=== PATIENT | male | born 1965 | race Caucasian/White ===

== ENCOUNTER 2024-04-02 17:15 | Inpatient (IN) | payer OTHER ==
[2024-04-02 17:57] VITALS: BMI 20.7
[2024-04-02] MEDS ORDERED: MAGNESIUM HYDROX 2400MG/30ML ORAL SUSPENSION 30 ML CUP PO PRN (18:54)
[2024-04-02] MEDS ORDERED: POLYETHYLENE GLYCOL (HEALTHYLAX) 3350 17 GM PACKET PO PRN (18:54)
[2024-04-02] MEDS ORDERED: BENZONATATE 200 MG CAPSULE PO PRN (18:54)
[2024-04-02] MEDS ORDERED: NALOXONE HCL 0.4 MG/ML VIAL IM PRN (18:54)
[2024-04-02] MEDS ORDERED: DOCUSATE SODIUM 100 MG CAPSULE (FP) PO PRN (18:54)
[2024-04-02] MEDS ORDERED: NICOTINE POLACRILEX 2 MG LOZENGE BC PRN (18:54)
[2024-04-02] MEDS ORDERED: NALOXONE (NARCAN) HCL 4 MG/0.1 ML SPRAY NS PRN (18:54)
[2024-04-02] MEDS ORDERED: hydrOXYzine PAMOATE 25 MG CAPSULE (FP) PO PRN (18:54)
[2024-04-02] MEDS ORDERED: guaiFENesin 600 MG TABLET.ER (FP) PO PRN (18:54)
[2024-04-02] MEDS ORDERED: IBUPROFEN 400 MG TABLET (FP) PO PRN (18:54)
[2024-04-02] MEDS ORDERED: MAG HYDROX/AL HYDROX/SIMETH 30 ML UNIT-DOSE CUP ONE (19:13)
[2024-04-02] MEDS: MAG HYDROX/AL HYDROX/SIMETH 30 ML UNIT-DOSE CUP PO PRN (19:19)
[2024-04-02] MEDS: PANTOPRAZOLE 20 MG TABLET PO SCH (20:18)
[2024-04-02] MEDS ORDERED: TUBERCULIN PPD 5 TU/0.1ML VIAL ID ONE (21:19)
[2024-04-02] MEDS: THIAMINE 100 MG TABLET PO SCH (21:19)
[2024-04-02] MEDS: MELATONIN 5 MG TABLETS PO SCH (21:19)
[2024-04-02] MEDS: TUBERCULIN PPD 5 TU/0.1ML SYRINGE (IN PATIENT USE ONLY) ID ONE (22:03)
[2024-04-03] MEDS ORDERED: methaDONE HCL 10 MG TABLET PO SCH (07:19)
[2024-04-03] MEDS: PRENATAL VITAMINS W/ FOLIC ACID TABLET (FP) PO SCH (10:32)
[2024-04-03] MEDS ORDERED: ESCITALOPRAM OXALATE 10 MG TABLET ONE (11:04)
[2024-04-03] MEDS: ESCITALOPRAM OXALATE 20 MG TABLET PO SCH (11:08)
[2024-04-03 12:15] LABS: HEMATOCRIT 37.5 % (35.4-49); MCH 28.4 pg (25.7-33.7); MCHC 32.1 g/dl (32.0-35.9); MEAN CELL VOLUME 88.6 fl (80-96); MEAN PLT VOLUME 8.6 fl (7.5-11.1); PLATELET COUNT 141 10^3/uL (134-434); RBC 4.23 M/mm3 (4.00-5.60); RDW 13.6 % (11.9-15.9); WHITE BLOOD COUNT 6.3 K/mm3 (4.0-10.0)
[2024-04-03 12:19] LABS: CHLORIDE 109 mmol/L (98-107); SODIUM 141 mmol/L (136-145)
[2024-04-03 12:21] LABS: CALCIUM 8.8 mg/dL (8.5-10.1)
[2024-04-03 12:22] LABS: ALBUMIN 3.3 g/dl (3.4-5.0); ANION GAP 4 mmol/L (4-13); BLOOD UREA NITROGEN 16.7 mg/dL (7-18); CO2 28 mmol/L (21-32); GLUCOSE,RANDOM 106 mg/dL (74-106)
[2024-04-03 12:25] LABS: CREATININE 1.2 mg/dL (0.55-1.3); SGOT/AST 21 U/L (15-37); SGPT/ALT 23 U/L (13-61)
[2024-04-03 12:27] LABS: BILIRUBIN,TOTAL 0.3 mg/dL (0.2-1); TOT PROT 6.5 g/dl (6.4-8.2)
[2024-04-03 12:28] LABS: ALK PHOS 89 U/L (45-117)
[2024-04-03] MEDS: clonazePAM 1 MG ODT TABLETS SL SCH (14:22)
[2024-04-03 19:42] LABS: SYPHILIS W/ RPR CONF REACTIVE (NONREACTIVE)
[2024-04-03] MEDS: MIRTAZAPINE 30 MG TABLET PO SCH (21:20)
[2024-04-03] MEDS: OLANZapine 10 MG TABLET PO SCH (21:20)
[2024-04-04] MEDS ORDERED: ESCITALOPRAM OXALATE 10 MG TABLET ONE (09:08)
[2024-04-04 11:33] LABS: PH,URINE 7.5 (5.0-8.0); URINE APPEARANCE CLEAR; URINE BILIRUBIN NEGATIVE (NEGATIVE); URINE COLOR YELLOW; URINE GLUCOSE (UA) NEGATIVE (NEGATIVE); URINE KETONE NEGATIVE (NEGATIVE); URINE LEUK ESTERASE NEGATIVE (NEGATIVE); URINE NITRITE NEGATIVE (NEGATIVE); URINE PROTEIN NEGATIVE (NEGATIVE); URINE UROBILINOGEN 0.2 mg/dL (0.2-1.0)
[2024-04-05] MEDS: LOPERAMIDE HCL 2 MG CAPSULE PO PRN (06:40)
[2024-04-05] MEDS ORDERED: ESCITALOPRAM OXALATE 10 MG TABLET ONE (09:46)
[2024-04-06] MEDS: TRIMETHOBENZAMIDE HCL 200MG/2ML INJ IM ONE (06:55)
[2024-04-06] MEDS: IBUPROFEN 600 MG TABLET (FP) PO PRN (17:14)
[2024-04-07] MEDS ORDERED: ESCITALOPRAM OXALATE 10 MG TABLET ONE (08:59)
[2024-04-07] MEDS: NICOTINE 21 MG/24 HOURS TOPICAL PATCH TD SCH (13:45)
[2024-04-07] MEDS: GABAPENTIN 100 MG CAPSULE PO SCH (13:46)
[2024-04-08] MEDS: CALCIUM CARBONATE 650 MG TABLET PO PRN (08:44)
[2024-04-08] MEDS ORDERED: ESCITALOPRAM OXALATE 10 MG TABLET ONE (09:19)
[2024-04-09] MEDS: NICOTINE POLACRILEX 2 MG GUM BUC PRN (09:59)
[2024-04-11] MEDS ORDERED: ESCITALOPRAM OXALATE 10 MG TABLET ONE (09:35)
[2024-04-12] MEDS ORDERED: ESCITALOPRAM OXALATE 10 MG TABLET ONE (09:33)
[2024-04-13] MEDS ORDERED: ESCITALOPRAM OXALATE 10 MG TABLET ONE (09:28)
[2024-04-14] MEDS ORDERED: ESCITALOPRAM OXALATE 10 MG TABLET ONE (09:42)
[2024-04-15] MEDS ORDERED: ESCITALOPRAM OXALATE 10 MG TABLET ONE (10:11)
[2024-04-16] MEDS: HEPATITIS A VIRUS VACCINE/PF 1440 UNIT/1 ML IM ONE (15:20)
[2024-04-17] MEDS ORDERED: ESCITALOPRAM OXALATE 10 MG TABLET ONE (09:13)
[2024-04-20] MEDS: BENZOCAINE/MENTHOL (CHLORASEPTIC ) LOZENGE MM PRN (06:25)
[2024-04-20] MEDS ORDERED: ESCITALOPRAM OXALATE 10 MG TABLET ONE (08:47)
[2024-04-20] MEDS: ACETAMINOPHEN 325 MG TABLET (FP) PO PRN (21:19)
[2024-04-21] MEDS ORDERED: ESCITALOPRAM OXALATE 10 MG TABLET ONE (09:53)
[2024-04-21] MEDS ORDERED: BENZONATATE 200 MG CAPSULE PO PRN (10:42)
[2024-04-21] MEDS: AZITHROMYCIN 250 MG TABLET PO ONE (11:13)
[2024-04-21] MEDS: P-EPHED 60MG/TRIPROLIDI 2.5MG TABLET PO PRN (17:21)
[2024-04-21] MEDS: guaiFENesin 600 MG TABLET.ER (FP) PO PRN (21:41)
[2024-04-22] MEDS ORDERED: ESCITALOPRAM OXALATE 10 MG TABLET ONE (08:53)
[2024-04-22] MEDS: AZITHROMYCIN 250 MG TABLET PO SCH (09:57)
[2024-04-22] MEDS: clonazePAM 1 MG ODT TABLETS SL SCH (14:19)
[2024-04-22] MEDS: OXYMETAZOLINE 0.05% NASAL SOLUTION 15 ML BOTTLE NS PRN (21:23)
[2024-04-23] MEDS ORDERED: ESCITALOPRAM OXALATE 10 MG TABLET ONE (08:50)
[2024-04-24] MEDS ORDERED: ESCITALOPRAM OXALATE 10 MG TABLET ONE (09:16)
[2024-04-25] MEDS ORDERED: ESCITALOPRAM OXALATE 10 MG TABLET ONE (09:31)
[2024-04-26] MEDS ORDERED: ESCITALOPRAM OXALATE 10 MG TABLET ONE (09:06)
[2024-04-28] MEDS ORDERED: ESCITALOPRAM OXALATE 10 MG TABLET ONE (09:30)
[2024-04-28] MEDS: clonazePAM 1 MG ODT TABLETS SL SCH (13:50)
[2024-04-29 06:49] VITALS: BP 144/84; PULSE 70; RESP 16; TEMP 97.1
[2024-04-29] MEDS ORDERED: ESCITALOPRAM OXALATE 10 MG TABLET ONE (08:53)
== END 2024-04-29 09:10 | disposition home or self-care (01) | DRG 774 ==
LOC: YASAS 17:15 → Y3W 19:11
PROVIDERS: ADMIT Allergy & Immunology; ATTEND Psychiatry & Neurology Pain Medicine
DX: F10.20 Alcohol dependence, uncomplicated (principal); F14.20 Cocaine dependence, uncomplicated; F12.20 Cannabis dependence, uncomplicated; F17.210 Nicotine dependence, cigarettes, uncomplicated; F33.9 Major depressive disorder, recurrent, unspecified; F41.9 Anxiety disorder, unspecified; K21.9 Gastro-esophageal reflux disease without esophagitis; M54.50 Low back pain, unspecified; G89.29 Other chronic pain
CPT/HCPCS: 0241U-QW; 36415; 80053; 80305; 80307; 81003; 85027; 86593; 86780; 86803; 87522; 87811; 90632; 93005; 93010